=== PATIENT | female | born 1950 | race Caucasian/White ===

== ENCOUNTER 2022-04-29 07:27 | Inpatient (IN) | payer MEDICARE ==
[2022-04-29] VITALS (7 sets, daily range): BP systolic 127–162; BP diastolic 64–93; O2SAT 94
[~2022-04-29] VITALS: Ht 167.6 cm; Wt 113.7 kg
[~2022-04-29 07:27] MED LIST: ANAS1TAB2; ATOR1TAB19; BACTDSTA; CEPH500C; COLC0.6T47; DICL1GEL3; HEPARIN SOD (PORCINE) 5000UNITS/ML 1ML VIAL/SYRINGE SQ ONE; HYDR200T3; METO1TAB32; NYST1POW9; OMEP-173; VALS320T3; VERA180T42; ceFAZolin SOD 1 GM in D5W MINI-BAG PLUS 50 ML IV ONE; ceFAZolin SOD 2 GM in IV 1 EA IV ONE
[2022-04-29] MEDS ORDERED: BUPIVACAINE LIPOSOME/PF 1.3% 20ML VIAL (13.3MG/ML)(EXPAREL) As Ordered ONE (09:12)
[2022-04-29] MEDS ORDERED: ONDANSETRON 4MG 2ML VIAL As Ordered ONE (09:13)
[2022-04-29] MEDS ORDERED: propofoL 200 MG/20 ML VIAL As Ordered ONE (09:13)
[2022-04-29] MEDS ORDERED: fentaNYL 250 MCG/5 ML INJECTION As Ordered ONE (09:13)
[2022-04-29] MEDS ORDERED: LIDOCAINE 2% 100MG/5ML SDV (FOR ANES.) As Ordered ONE (09:13)
[2022-04-29] MEDS ORDERED: dexameTHASONE 4 MG/ML 1ML VIAL (J1100 PER 1MG) As Ordered ONE (09:13)
[2022-04-29] MEDS ORDERED: ROCURONIUM BROMIDE 50 MG/5 ML VIAL As Ordered ONE ×3 (09:13→11:39)
[2022-04-29] MEDS ORDERED: MIDAZOLAM INJ 2MG/2ML VIAL (J2250 PER 1MG) As Ordered ONE (09:14)
[2022-04-29] MEDS ORDERED: SEVOFLURANE INHAL SOLN 250 ML BTL As Ordered ONE (09:15)
[2022-04-29] MEDS ORDERED: GENTAMICIN SULF 80MG/2ML VIAL As Ordered ONE (09:27)
[2022-04-29] MEDS ORDERED: BUPIVACAINE HCL 0.25% 10ML VIAL As Ordered ONE (09:27)
[2022-04-29] MEDS ORDERED: LACRILUBE (AKWA TEARS) OPHTH OINT 3.5 GM As Ordered ONE (10:07)
[2022-04-29] MEDS ORDERED: GLYCOPYRROLATE INJ 0.2 MG/ML 2 ML VIAL As Ordered ONE ×3 (10:22→13:30)
[2022-04-29] MEDS ORDERED: HYDROmorphone HCL 2MG/ML 1ML VIAL As Ordered ONE (11:17)
[2022-04-29] MEDS ORDERED: SUGAMMADEX SODIUM 500 MG/5 ML VIAL (BRIDION) As Ordered ONE (11:17)
[2022-04-29] MEDS ORDERED: ACETAMINOPHEN 1000MG 100ML IV BTL (OFIRMEV) (J0131 PER 10MG) As Ordered ONE (11:21)
[2022-04-29] MEDS ORDERED: METOCLOPRAMIDE INJ 10MG/2ML VIAL (J2765 PER 1) As Ordered ONE (13:22)
[2022-04-29] MEDS ORDERED: ONDANSETRON 4MG 2ML VIAL IV PRN (14:50)
[2022-04-29] MEDS ORDERED: fentaNYL 100 MCG/2 ML INJECTION IV PRN (14:50)
[2022-04-29] MEDS ORDERED: MORPHINE 2 MG/ML 1ML VIAL IV PRN (14:50)
[2022-04-29] MEDS ORDERED: LR 1,000 ML IV SCH (14:50)
[2022-04-29] MEDS ORDERED: PERCOCET 5MG/325MG TAB PO PRN (15:20)
[2022-04-29] MEDS ORDERED: traMADol 50 MG TAB PO PRN (15:20)
[2022-04-29] MEDS: oxyCODONE 5MG TAB PO PRN ×2 (15:40→16:26)
[2022-04-29] MEDS ORDERED: ATORVASTATIN 10 MG TAB PO SCH (21:00)
[2022-04-29] MEDS ORDERED: VERA180C PO (21:19)
[2022-04-29] MEDS ORDERED: VITA500030 PO (21:19)
[2022-04-29] MEDS ORDERED: ATOR1TAB19 PO (21:19)
[2022-04-29] MEDS ORDERED: ESSE250T PO (21:19)
[2022-04-29] MEDS ORDERED: OMEP1CAP73 PO (21:19)
[2022-04-29] MEDS ORDERED: ASPI-161 PO (21:19)
[2022-04-29] MEDS ORDERED: ANAS1TAB2 PO (21:19)
[2022-04-29] MEDS ORDERED: METO1TAB32 PO (21:19)
[2022-04-29] MEDS ORDERED: DICL1GEL3 TOP (21:19)
[2022-04-29] MEDS ORDERED: TUMS500C PO (21:19)
[2022-04-29] MEDS ORDERED: NYST1POW9 TOP (21:19)
[2022-04-29] MEDS ORDERED: VALS320T3 PO (21:19)
[2022-04-29] MEDS ORDERED: COLC0.6T47 PO (21:19)
[2022-04-29] MEDS ORDERED: HYDR200T3 PO (21:19)
[2022-04-29] MEDS: PERCOCET 5MG/325MG TAB PO PRN (21:47)
[2022-04-29] MEDS ORDERED: HOME MED LIST COMPLETE! XX SCH (21:50)
[2022-04-29] MEDS ORDERED: PILL CUTTER 1 EACH XX PRN (23:20)
[2022-04-30] MEDS: HYDROXYCHLOROQUINE 200 MG TAB PO SCH ×2 (00:57→08:14)
[2022-04-30] MEDS: OMEPRAZOLE 20MG CAP PO SCH ×2 (00:58→08:14)
[2022-04-30 02:00] VITALS: BP 136/65
[2022-04-30 06:00] VITALS: BP 136/62
[2022-04-30 08:16] VITALS: BP 124/65
[2022-04-30 08:30] LABS: HEMATOCRIT 36.3 % (36.0-47.0); HEMOGLOBIN 11.8 g/dl (12.0-15.5); MEAN CORPUSCULAR HGB CONC 32.5 g/dl (32.0-36.5); MEAN CORPUSCULAR VOLUME 95.3 fl (80.0-96.0); PLATELET COUNT, AUTOMATED 148 10^3/uL (150-450); RED BLOOD COUNT 3.81 10^6/uL (4.00-5.40); WHITE BLOOD COUNT 8.5 10^3/uL (4.0-10.0)
[2022-04-30 08:54] LABS: BLOOD UREA NITROGEN 17 MG/DL (7-18); CALCIUM LEVEL 9.3 MG/DL (8.8-10.2); CARBON DIOXIDE LEVEL 29 MEQ/L (21-32); CHLORIDE LEVEL 109 MEQ/L (98-107); CREATININE FOR GFR 0.67 MG/DL (0.55-1.30); GLOMERULAR FILTRATION RATE > 60.0 (>39); GLUCOSE, FASTING 89 MG/DL (70-100); POTASSIUM SERUM 4.2 MEQ/L (3.5-5.1); SODIUM LEVEL 141 MEQ/L (136-145)
[2022-04-30 09:00] VITALS: O2SAT 96
[2022-04-30] MEDS ORDERED: VERAPAMIL 180MG EXTENDED RELEASE TABLET PO SCH (09:00)
[2022-04-30] MEDS ORDERED: VALSARTAN 80 MG TAB (DIOVAN) PO SCH (09:00)
[2022-04-30] MEDS ORDERED: COLCHICINE 0.6 MG TABLET PO SCH (09:00)
[2022-04-30] MEDS ORDERED: OXYC1TAB23 PO (10:05)
[2022-04-30] MEDS ORDERED: oxyCODONE 5MG TAB PO ONE (13:05)
[2022-04-30] MEDS: PERCOCET 5MG/325MG TAB PO PRN (13:14)
== END 2022-04-30 13:20 | disposition home or self-care (01) | DRG 585 ==
LOC: M SDC 07:27 → M MS5PR 18:25 → M SDC 23:30 → M MS5PR 23:31
PROVIDERS: ADMIT Student in an Organized Health Care Education/Training Program; ATTEND Student in an Organized Health Care Education/Training Program
PROC: 0HP Skin and Breast, Removal (ICD-10-PCS; 2022-04-29)
PROC: 0HP Skin and Breast, Removal (ICD-10-PCS; 2022-04-29)
PROC: 4A1GXSH Monitoring of Skin and Breast Vascular Perfusion using Indocyanine Green Dye, External Approach (ICD-10-PCS; 2022-04-29)
PROC: 0HSV0ZZ Reposition Bilateral Breast, Open Approach (ICD-10-PCS; principal; 2022-04-29 09:00)
DX: T85.44XA Capsular contracture of breast implant, initial encounter (principal); Y83.1 Surgical operation with implant of artificial internal device as the cause of abnormal reaction of the patient, or of later complication, without mention of misadventure at the time of the procedure; Z90.13 Acquired absence of bilateral breasts and nipples; M11.9 Crystal arthropathy, unspecified; I10 Essential (primary) hypertension; Z92.3 Personal history of irradiation; K21.9 Gastro-esophageal reflux disease without esophagitis; I49.1 Atrial premature depolarization; E78.5 Hyperlipidemia, unspecified; Z79.899 Other long term (current) drug therapy; Z85.3 Personal history of malignant neoplasm of breast; Z85.858 Personal history of malignant neoplasm of other endocrine glands